=== PATIENT | female | born 1950 | race Two or more races ===

== ENCOUNTER 2017-11-11 20:28 | Emergency (ER) | payer OTHER ==
[~2017-11-11] VITALS: Ht 170.2 cm; Wt 71.2 kg
== END 2017-11-11 21:31 | disposition home or self-care (01) ==
LOC: ER 20:28
DX: I16.0 Hypertensive urgency (principal); B30.3 Acute epidemic hemorrhagic conjunctivitis (enteroviral)

== ENCOUNTER 2018-06-17 09:11 | Outpatient (CLI) | payer OTHER ==
[~2018-06-17 09:11] MED LIST: CRESTOR5 MG; SYNTHROID50 MCG
== END 2018-06-17 09:19 | disposition home or self-care (01) ==
LOC: MAMO-SONO 09:11
DX: N64.4 Mastodynia (principal); Z12.31 Encounter for screening mammogram for malignant neoplasm of breast

== ENCOUNTER 2020-01-16 08:43 | Outpatient (CLI) | payer OTHER | END 2020-01-16 08:57 | disposition home or self-care (01) | LOC: MAMO-SONO 08:43 | PROVIDERS: ATTEND Family Medicine | DX: Z12.31 Encounter for screening mammogram for malignant neoplasm of breast (principal) ==

== ENCOUNTER 2021-09-11 08:20 | Outpatient (CLI) | payer OTHER | END 2021-09-11 08:26 | disposition home or self-care (01) | LOC: MAMO-SONO 08:20 | PROVIDERS: ATTEND Obstetrics & Gynecology | DX: N63.11 Unspecified lump in the right breast, upper outer quadrant (principal); N63.20 Unspecified lump in the left breast, unspecified quadrant ==

== ENCOUNTER 2023-05-10 09:22 | Emergency (ER) | payer OTHER ==
[~2023-05-10] VITALS: Ht 170.2 cm; Wt 83.0 kg
== END 2023-05-10 12:51 | disposition home or self-care (01) ==
LOC: ER 09:23
DX: S01.00XA Unspecified open wound of scalp, initial encounter (principal); W19.XXXA Unspecified fall, initial encounter; Y93.89 Activity, other specified; Y92.89 Other specified places as the place of occurrence of the external cause; I10 Essential (primary) hypertension

== ENCOUNTER 2023-05-18 07:25 | Emergency (ER) | payer OTHER ==
[~2023-05-18] VITALS: Ht 170.2 cm; Wt 73.9 kg
== END 2023-05-18 09:21 | disposition home or self-care (01) ==
LOC: ER 07:26
DX: Z48.02 Encounter for removal of sutures (principal)

== ENCOUNTER 2023-11-19 08:16 | Outpatient (CLI) | payer OTHER | END 2023-11-19 08:21 | disposition home or self-care (01) | LOC: MAMO-SONO 08:16 | PROVIDERS: ATTEND General Practice | DX: E03.9 Hypothyroidism, unspecified (principal); I10 Essential (primary) hypertension; G60.3 Idiopathic progressive neuropathy; E78.2 Mixed hyperlipidemia; N60.11 Diffuse cystic mastopathy of right breast; N60.12 Diffuse cystic mastopathy of left breast; Z12.31 Encounter for screening mammogram for malignant neoplasm of breast ==